=== PATIENT | female | born 1970 | race Two or more races ===

== ENCOUNTER 2016-05-21 16:26 | Emergency (ER) | payer OTHER ==
[2016-05-21 16:38] VITALS: BP 124/87
--- NOTE | 2016-05-21 22:36 | UC ---
Angella Hare Erika, scribed for Meghna Mitchell MD on 05/21/16 at 1645 . Skin Complaint HPI - HPI Summary HPI Summary: Patient is a 46-year-old female presenting to [facility] with a CC of a slightly sore lump in her left axilla. Patient reports that she first noticed the lump this morning while she was in the shower. Patient reports a sinus infection 1 month ago. Patient states she had a normal mammogram in December 2015. She denies FHx breast cancer. FHx throat and stomach CA. Hx Tho's. LNMP ended 6 days ago. - History of Current Complaint Chief Complaint: UCSkin Time Seen by Provider: 05/21/16 16:42 Stated Complaint: LUMP UNDER ARM PIT Hx Obtained From: Patient Hx Last Menstrual Period: 1 WEEK AGO ?: No Onset/Duration: Gradual Onset, Lasting Hours, Still Present Timing: Constant Current Severity: Mild Pain Intensity: 1 Pain Scale Used: 0-10 Numeric Location: Other - left axilla Character: Raised Aggravating: Nothing Alleviating: Nothing Associated Signs & Symptoms: Positive: Negative - Allergy/Home Medications Allergies/Adverse Reactions: Allergies Allergy/AdvReac Type Severity Reaction Status Date / Time No Known Allergies Allergy Verified 05/21/16 16:38 Home Medications: Home Medications Lactobacillus [Probiotic] 05/21/16 [History] Levothyroxine TAB* [Synthroid TAB*] 112 mcg PO DAILY 05/21/16 [History Confirmed 05/21/16] [place]-3 Fatty Acids [Fish Oil] 05/21/16 [History Confirmed 05/21/16] Review of Systems Constitutional: Negative Skin: Other - sore lump to the left axilla Eyes: Negative ENT: Negative Respiratory: Negative Cardiovascular: Negative Gastrointestinal: Negative Genitourinary: Negative Motor: Negative Neurovascular: Negative Musculoskeletal: Negative Neurological: Negative Psychological: Negative All Other Systems Reviewed And Are Negative: Yes PMH/Surg Hx/FS Hx/Imm Hx Endocrine History Of: Reports: Thyroid Disease - Tho's on replacement, Hypothyroidism Denies: Diabetes - BORDERLINE Cardiovascular History Of: Denies: Cardiac Disorders, Hypertension, Pacemaker/ICD Respiratory History Of: Reports: Pneumonia - 2000,2006 Denies: COPD, Asthma GI/ History Of: Denies: Ulcer Psychological History Of: Reports: Depression Cancer History Of: Denies: Breast Cancer - Surgical History Surgical History: None - Family History Known Family History: Positive: Other - throat and stomach cancer Negative: Cardiac Disease, Renal Disease Family History: No FHx breast cancer - Social History Alcohol Use: None Substance Use Type: None Smoking Status (MU): Former Smoker When Did the Patient Quit Smoking/Using Tobacco: quit at age 20. 5 hear hx of smoking - age [age] - Immunization History Most Recent Influenza Vaccination: 2015 Most Recent Tetanus Shot: unsure Most Recent Pneumonia Vaccination: 2016 Physical Exam Triage Information Reviewed: Yes Appearance: Well-Appearing, No Pain Distress, Well-Nourished Vital Signs: Initial Vital Signs Temp 97.4 F 05/21/16 16:35 Pulse 78 05/21/16 16:35 Resp 16 05/21/16 16:35 BP 124/87 05/21/16 16:35 Pulse Ox 99 05/21/16 16:35 Vital Signs Reviewed: Yes Eyes: Positive: Conjunctiva Clear ENT: Positive: Normal ENT inspection Neck exam: Other - enlarged thyroid palpable Neck: Positive: Supple, No Lymphadenopathy Respiratory: Positive: Lungs clear, Normal breath sounds, No respiratory distress Cardiovascular: Positive: RRR, No Murmur, Pulses Normal, Brisk Capillary Refill Musculoskeletal: Positive: Strength Intact, ROM Intact Neurological: Positive: Alert, Muscle Tone Normal Psychological Exam: Normal Skin Exam: Other - 2 cm lump to the left axilla that is movable, nontender, not erythematous, and not inflammed. No other lymph nodes palpable bilaterally. No dimpling of the breasts. No nipple discharge bilaterally. No masses in the breasts bilaterally. Course/Dx - Differential Diagnoses - Skin Complaint Differential Diagnoses: Abscess, Lymphadenitis, Other - breast cancer with lymph node - Diagnoses Provider Diagnoses: Lymph node in left axilla - Physician Notification/Consults Discussed Patient Care With: Page out to Dr. Sharpe (surgery) at 17:10. Paged again at 17:40. Dr. Sharpe returns call at 17:49 - notified of patient for close follow up. Pt can call their office tomorrow for a soon appointment. Discharge - Discharge Plan Condition: Stable Disposition: HOME Patient Education Materials: Lymphadenopathy (ED) Referrals: Makeda Lynch MD [Primary Care Provider] - Tarun Sharpe MD [Medical Doctor] - As Soon As Possible Additional Instructions: Dr Mitchell has spoken to Dr. Sharpe the surgeon transportation department head. He advises you to call their office tomorrow, first thing, and he has authorized an appointment with one of the surgeons in the office in the next 1-[address] Lynch, or return to urgent care if you have any new or worsening symptoms. The documentation as recorded by the Angella nova Erika accurately reflects the service I personally performed and the decisions made by me, Meghna Mitchell MD.
== END 2016-05-21 18:07 | disposition home or self-care (01) ==
LOC: UCEAST 16:26
DX: R59.0 Localized enlarged lymph nodes (principal); E06.3 Autoimmune thyroiditis; E03.9 Hypothyroidism, unspecified; Z87.891 Personal history of nicotine dependence
CPT/HCPCS: 99212; G0463

== ENCOUNTER 2016-06-20 14:04 | Emergency (ER) | payer OTHER ==
[2016-06-20 14:54] VITALS: BP 121/81
--- NOTE | 2016-06-20 15:06 | UC ---
Complaint Female HPI - HPI Summary HPI Summary: compalint of dysuria that started 3 daysa go painful urintaiotn increased urgency and frequency of urination denies fever back pain and abdominal pain has been using azo and increasing fluids frequent UTI approx 3-4 times per day - History Of Current Complaint Chief Complaint: UCGU Stated Complaint: UTI Time Seen by Provider: 06/20/16 14:50 Hx Obtained From: Patient Hx Last Menstrual Period: 06/09/16 - Allergies/Home Medications Allergies/Adverse Reactions: Allergies Allergy/AdvReac Type Severity Reaction Status Date / Time No Known Allergies Allergy Verified 06/20/16 14:48 Home Medications: Home Medications Phenazopyridine HCl [Azo Urinary Pain Relief] 95 mg PO DAILY PRN 06/20/16 [ History Confirmed 06/20/16] PMH/Surg Hx/FS Hx/Imm Hx Previously Healthy: Yes Endocrine History Of: Reports: Thyroid Disease - Tho's, Hypothyroidism Comment Only: Diabetes - BORDERLINE Cardiovascular History Of: Denies: Cardiac Disorders, Hypertension, Pacemaker/ICD Respiratory History Of: Reports: Pneumonia - 2000,2006 Denies: COPD, Asthma GI/ History Of: Denies: Ulcer Psychological History Of: Reports: Depression Cancer History Of: Denies: Breast Cancer - Surgical History Surgical History: None - Family History Known Family History: Positive: Other - throat and stomach cancer Negative: Cardiac Disease, Renal Disease Family History: No FHx breast cancer - Social History Occupation: Employed Full-time Lives: With Family Alcohol Use: None Substance Use Type: None Smoking Status (MU): Former Smoker When Did the Patient Quit Smoking/Using Tobacco: quit at age 20. 5 hear hx of smoking - age [age] - Immunization History Most Recent Influenza Vaccination: 2016 Most Recent Tetanus Shot: unsure Most Recent Pneumonia Vaccination: 2016 Review of Systems Constitutional: Negative Skin: Negative Eyes: Negative ENT: Negative Respiratory: Negative Cardiovascular: Negative Genitourinary: Dysuria, Frequency, Urgency Neurovascular: Negative Musculoskeletal: Negative Neurological: Negative Psychological: Negative All Other Systems Reviewed And Are Negative: Yes Physical Exam Triage Information Reviewed: Yes Appearance: No Pain Distress, Well-Nourished, Obese Vital Signs: Initial Vital Signs Temp 98.0 F 06/20/16 14:50 Pulse 77 06/20/16 14:50 Resp 16 06/20/16 14:50 BP 121/81 06/20/16 14:50 Pulse Ox 98 06/20/16 14:50 Vital Signs Reviewed: Yes Eyes: Positive: Conjunctiva Clear ENT: Positive: Pharynx normal, TMs normal. Negative: Nasal congestion Neck: Positive: No Lymphadenopathy Respiratory: Positive: Lungs clear, Normal breath sounds, No respiratory distress Cardiovascular: Positive: RRR, No Murmur, Pulses Normal Abdomen Description: Positive: Nontender, No Organomegaly, Soft. Negative: CVA Tenderness (R), CVA Tenderness (L), Distended, Guarding Bowel Sounds: Positive: Present Musculoskeletal: Positive: No Edema Neurological Exam: Normal Psychological Exam: Normal Skin Exam: Normal Complaint Female Dx - Differential Dx/Diagnosis Differential Diagnosis/HQI/PQRI: Ureteral Stone, Urinary Tract Infection Provider Diagnoses: UTI Discharge - Discharge Plan Condition: Stable Disposition: HOME Prescriptions: Nitrofurantoin Monohyd Macro [Macrobid] 100 mg PO BID #10 cap Patient Education Materials: Urinary Tract Infection in Women (ED) Referrals: Makeda Lynch MD [Primary Care Provider] - Additional Instructions: Start antibiotic as directed Increase fluids and rest Take acetaminophen or ibuprofen for fever or pain Please review your discharge instructions. If your symptoms do not improve please call your primary care provider or return to urgent care
[2016-06-20] MEDS ORDERED: Phenazopyridine TAB* 100 MG PO ONE (15:14)
== END 2016-06-20 15:21 | disposition home or self-care (01) ==
LOC: UCEAST 14:04
DX: N39.0 Urinary tract infection, site not specified (principal); Z87.440 Personal history of urinary (tract) infections; E66.9 Obesity, unspecified; Z87.891 Personal history of nicotine dependence
CPT/HCPCS: 87077; 87086; 87186; 99212; A9270-GY; G0463